=== PATIENT | male | born 1995 | race Caucasian/White ===

== ENCOUNTER 2017-02-08 06:05 | Inpatient (IN) | payer OTHER, BC ==
[2017-02-08] MEDS ORDERED: SODIUM CHLORIDE 0.9% 500 ML IV STA (06:13)
[2017-02-08] MEDS ORDERED: RX INFO: IV CONTRAST WAS GIVEN 1 EACH MISC MISCELLANE PRN ×2 (06:13→11:57)
[2017-02-08] MEDS: SODIUM CHLORIDE 0.9% 1,000 ML IV STA (06:25)
[2017-02-08 06:33] LABS: Basophils % (A) 0 %; CH 30.7; CHCM 35.3; Eosinophils # (A) 0.4 k/uL (0-0.7); Eosinophils % (A) 5 %; HCT 43.9 % (39.0-53.0); HDW 2.64; HGB 15.7 gm/dL (13.0-17.5); Luc # (Auto) 0.21; Luc % (Auto) 3; Lymphocytes # (A) 2.7 k/uL (1.0-4.8); Lymphocytes % (A) 35 %; MCH 31.3 pg (25.0-35.0); MCHC 35.8 g/dL (31.0-37.0); MCV 87.5 fL (80.0-100.0); Mean Platelet Volume 8.1; Monocytes # (A) 0.4 k/uL (0-1.0); Monocytes % (A) 6 %; Neutrophils % (A) 51 %; RBC 5.02 m/uL (4.30-5.90); RDW 12.9 % (11.5-15.5); WBC 7.7 k/uL (4.0-11.0); WBC (Perox) 7.82
[2017-02-08 06:45] LABS: ALT 31 U/L (21-72); AST 26 U/L (17-59); Alcohol <10 mg/dL; Alkaline Phosphatase 49 U/L (38-126); Anion Gap 14 mmol/L; Blood Urea Nitrogen 18 mg/dL (9-20); Calcium 9.6 mg/dL (8.4-10.2); Carbon Dioxide 23 mmol/L (22-30); Chloride 105 mmol/L (98-107); Glucose 122 mg/dL (74-99); Non-African American GFR(MDRD) >60 (>60 ml/min/1.73 sqM); Potassium 3.5 mmol/L (3.5-5.1); Sodium 142 mmol/L (137-145); Total Bilirubin 1.1 mg/dL (0.2-1.3)
[2017-02-08 06:57] LABS: INR 1.1 (<1.1); Partial Thromboplastin Time 24.7 sec (22.0-30.0); Prothrombin Time 10.8 sec (9.0-12.0)
[2017-02-08 07:00] LABS: Creatine Kinase 129 U/L (55-170)
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
[2017-02-08 07:13] LABS: Creatine Kinase MB 1.2 ng/mL (0.0-2.4); Troponin I <0.012 ng/mL (0.000-0.034)
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
[2017-02-08] MEDS ORDERED: MORPHINE SULFATE 4 MG/ML SYRINGE IVP PRN (08:35)
[2017-02-08] MEDS ORDERED: ONDANSETRON 4 MG/2 ML VIAL IVP PRN (08:35)
[2017-02-08] MEDS ORDERED: PANTOPRAZOLE 40 MG/10 ML VIAL IVP STA (08:35)
[2017-02-08] MEDS: SODIUM CHLORIDE 0.9% 1,000 ML IV ONE (09:29)
[2017-02-08 10:08] LABS: Appearance,Urine Clear (Clear); Bilirubin,Urine Negative (Negative); Glucose,Urine (UA) Negative (Negative); Ketones,Urine Negative (Negative); Leukocyte Esterase,Urine Negative (Negative); Nitrite,Urine Negative (Negative); PH, Urine 6.5 (5.0-8.0); Protein,Urine Negative (Negative); Specific Gravity,Urine 1.012 (1.001-1.035); UA Billing (MACRO vs. MICRO) CHEM; Urobilinogen,Urine <2.0 mg/dL (<2.0)
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
[2017-02-08] MEDS ORDERED: IOHEXOL 350 MG/ML 25 ML BOTTLE (ORAL USE) PO PRN (12:17)
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
[2017-02-09] MEDS: SODIUM CHLORIDE 0.9% 1,000 ML IV ONE (02:08)
[2017-02-09 07:14] LABS: Blood Urea Nitrogen 12 mg/dL (9-20); Non-African American GFR(MDRD) >60 (>60 ml/min/1.73 sqM)
[2017-02-09] MEDS: IOHEXOL 350 MG/ML 25 ML BOTTLE (ORAL USE) PO PRN ×2 (07:40→08:33)
[2017-02-09] MEDS: PANTOPRAZOLE 40 MG/10 ML VIAL IVP SCH (08:32)
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
[2017-02-09] MEDS: SODIUM CHLORIDE 0.9% 1,000 ML IV STA (20:35)
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
[2017-02-10] MEDS: SODIUM CHLORIDE 0.9% 1,000 ML IV STA (05:50)
[2017-02-10 06:49] LABS: Basophils % (A) 0 %; CH 30.8; CHCM 35.7; Eosinophils # (A) 0.1 k/uL (0-0.7); Eosinophils % (A) 2 %; HCT 36.1 % (39.0-53.0); HDW 2.61; HGB 13.3 gm/dL (13.0-17.5); Luc # (Auto) 0.13; Luc % (Auto) 2; Lymphocytes # (A) 1.5 k/uL (1.0-4.8); Lymphocytes % (A) 24 %; MCH 31.9 pg (25.0-35.0); MCHC 36.8 g/dL (31.0-37.0); MCV 86.8 fL (80.0-100.0); Mean Platelet Volume 8.2; Monocytes # (A) 0.6 k/uL (0-1.0); Monocytes % (A) 10 %; Neutrophils # (A) 3.9 k/uL (1.3-7.7); Neutrophils % (A) 62 %; RBC 4.16 m/uL (4.30-5.90); RDW 12.9 % (11.5-15.5); WBC 6.3 k/uL (4.0-11.0); WBC (Perox) 6.59
[2017-02-10 07:00] LABS: ALT 26 U/L (21-72); AST 31 U/L (17-59); Alkaline Phosphatase 38 U/L (38-126); Anion Gap 12 mmol/L; Blood Urea Nitrogen 7 mg/dL (9-20); Calcium 9.5 mg/dL (8.4-10.2); Carbon Dioxide 22 mmol/L (22-30); Chloride 110 mmol/L (98-107); Glucose 98 mg/dL (74-99); Non-African American GFR(MDRD) >60 (>60 ml/min/1.73 sqM); Potassium 4.1 mmol/L (3.5-5.1); Sodium 144 mmol/L (137-145); Total Bilirubin 2.2 mg/dL (0.2-1.3); Total Protein 6.6 g/dL (6.3-8.2)
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
[2017-02-10 16:47] VITALS: BP 140/73; PULSE 63; RESP 20; TEMP 97.8
[2017-02-10] MEDS: PANTOPRAZOLE 40 MG/10 ML VIAL IVP SCH (19:07)
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
== END 2017-02-10 19:39 | disposition home or self-care (01) | DRG 84 ==
LOC: EC 06:05 → 6PED 08:36
PROVIDERS: ADMIT Surgery; ATTEND Surgery
DX: S06.2X9A Diffuse traumatic brain injury with loss of consciousness of unspecified duration, initial encounter (principal); R00.1 Bradycardia, unspecified; S30.1XXA Contusion of abdominal wall, initial encounter; S20.311A Abrasion of right front wall of thorax, initial encounter; S70.311A Abrasion, right thigh, initial encounter; S80.211A Abrasion, right knee, initial encounter; S01.111A Laceration without foreign body of right eyelid and periocular area, initial encounter; S80.212A Abrasion, left knee, initial encounter; M25.551 Pain in right hip; R10.9 Unspecified abdominal pain; R40.2410 Glasgow coma scale score 13-15, unspecified time; Z87.828 Personal history of other (healed) physical injury and trauma; Z83.3 Family history of diabetes mellitus; V43.53XA Car driver injured in collision with pick-up truck in traffic accident, initial encounter; Y92.410 Unspecified street and highway as the place of occurrence of the external cause
CPT/HCPCS: 36415; 70450; 70553; 71010; 71260; 72125; 72170; 74177; 80053; 80306; 80320; 81003; 82550; 82553; 82565; 84484; 84520; 85025; 85610; 85730; 86850; 86900; 86901; 93005; 95819; 99285

== ENCOUNTER → 2017-06-29 | Outpatient (CLI) | payer BC ==
--- NOTE | 2017-06-29 19:42 | MR ---
PRE AND POSTCONTRAST ENHANCED MRI OF THE BRAIN: CLINICAL HISTORY: February 08, 2017 CONTRAST: 15 ML Multihance Multiplanar and multispin-echo imaging of the brain was performed both before and after the administr ation of contrast. T2 star data set again demonstrates numerous small foci of decreased signal within the right frontal greater than left frontal lobes. The findings likely reflect sequela of a previous diffuse axonal inj ury with hemosiderin deposition. No acute hemorrhage is seen at this time. The ventricles, basal cisterns and sulci overlying the cerebral convexities are within normal limits. There is no evidence for midline shift or mass effect. Acute intracranial hemorrhage is not evident. Stable 1 cm arachnoid cyst posterior superior temporal region. Following contrast administration, there is no evidence for pathologic enhancement or enhancing mass. The mastoid air cells are well-aerated. Chronic paranasal sinus disease. IMPRESSION: 1.T2 star data set again demonstrates numerous small foci of decreased signal within the right fronta l greater than left frontal lobes. The findings likely reflect sequela of a previous diffuse axonal i njury with hemosiderin deposition. No acute hemorrhage is seen at this time. 2. Stable arachnoid cyst as noted.
== END | disposition home or self-care (01) ==
LOC: RADMRIMAIN 17:51
PROVIDERS: ATTEND Psychiatry & Neurology Neurology
DX: G93.0 Cerebral cysts (principal); R90.89 Other abnormal findings on diagnostic imaging of central nervous system
CPT/HCPCS: 70553; A9581

== ENCOUNTER → 2020-05-22 | Outpatient (CLI) | payer BC | END | disposition home or self-care (01) | LOC: LABWHC1 13:51 | PROVIDERS: ATTEND Family Medicine | DX: R05 Cough (principal) | CPT/HCPCS: U0003; C9803 ==

== ENCOUNTER 2021-09-29 19:29 | Emergency (ER) | payer BC ==
[2021-09-29 20:03] VITALS: TEMP 98.4
[2021-09-29] MEDS ORDERED: DIPH,PERTUS(ACELL)TETVAC-LF 0.5 ML VIAL IM ONE (21:59)
[2021-09-29] MEDS ORDERED: LIDOCAINE 1% INJ 10MG/ML (20 ML MDV) SQ ONE (21:59)
[2021-09-29] MEDS ORDERED: BACITRACIN OINT 1 EACH PACKET TOPICAL ONE (21:59)
[2021-09-29 22:14] VITALS: BP 168/96; PULSE 92; RESP 20
--- NOTE | 2021-09-29 22:20 | XR ---
EXAMINATION TYPE: XR finger LT DATE OF EXAM: 09/29/2021 COMPARISON: NONE HISTORY: Pain TECHNIQUE: 3 views FINDINGS: There is no sign of fracture nor dislocation. Index finger appears intact. There is no evid ence of a foreign body. IMPRESSION: Negative left index finger exam.
[2021-09-29] MEDS ORDERED: ACETAMINOPHEN TAB 325 MG TAB PO STA (23:09)
[2021-09-29] MEDS ORDERED: CEPHALEXIN 500 MG CAP PO STA (23:11)
--- NOTE | 2021-09-29 23:18 | ED ---
General Adult HPI - General Chief complaint: Wound/Laceration Stated complaint: Lt Finger Laceration Time Seen by Provider: 09/29/21 21:22 Source: patient Mode of arrival: ambulatory - History of Present Illness Initial comments: This 25-year-old male presents emergency Department with left hand pointer finger laceration that happened today at 1:00 when he was working on his car. Patient states he was working in his car when his left hand slipped and hit a metal bracket, causing laceration. Patient states he is not sure when his last tetanus shot was but states he will get it today. Patient admits to spraying antiseptic and alcohol spray onto the finger along with adding liquid skin glue around 2 PM. Patient denies any pain to his left hand. Patient denies any loss of sensation or loss of movement to his finger or hand. Patient denies any chest pain, or shortness of breath, vomiting, nausea, vomiting, headache, change in vision, change in bowel or bladder. - Related Data Previous Rx's Medication Instructions Recorded Cephalexin [Keflex] 500 mg PO Q6HR #12 cap 09/29/21 Allergies Allergy/AdvReac Type Severity Reaction Status Date / Time No Known Allergies Allergy Verified 09/29/21 20:03 Review of Systems ROS Statement: Those systems with pertinent positive or pertinent negative responses have been documented in the HPI. ROS Other: All systems not noted in ROS Statement are negative. Past Medical History Past Medical History: No Reported History History of Any Multi-Drug Resistant Organisms: None Reported Past Surgical History: No Surgical Hx Reported Additional Past Surgical History / Comment(s): R evangelical surgery d/t dog bite Past Anesthesia/Blood Transfusion Reactions: No Reported Reaction Past Psychological History: No Psychological Hx Reported Smoking Status: Never smoker Past Alcohol Use History: None Reported Past Drug Use History: Marijuana - Past Family History Father Family Medical History: Diabetes Mellitus Mother Family Medical History: No Reported History General Exam General appearance: alert, in no apparent distress Head exam: Present: normocephalic Eye exam: Present: normal appearance, PERRL, EOMI. Absent: scleral icterus, conjunctival injection, periorbital swelling ENT exam: Present: mucous membranes moist Neck exam: Present: full ROM Respiratory exam: Present: normal lung sounds bilaterally. Absent: respiratory distress, wheezes, rales, rhonchi, stridor Cardiovascular Exam: Present: regular rate, normal rhythm, normal heart sounds. Absent: systolic murmur, diastolic murmur, rubs, gallop, clicks GI/Abdominal exam: Present: soft, normal bowel sounds. Absent: distended, tenderness, guarding, rebound, rigid Extremities exam: Present: normal inspection (1-1.5cm lac over left hand pointer finger. I was able to extensively irrigate the wound and to provide all of the dried glue that patient had put onto his laceration. Patient was able to flex and extend his finger), full ROM, normal capillary refill (Ulnar and radial pulses palpable of left hand), other (Patient with 1 cm laceration over her left hand pointer finger knuckle between the proximal and middle phalanx. Patient's finger in extension. Patient is able to flex his finger 90, however he is not able to fully flex his finger due to pain. Sensation intact in all digits. No pain to palpation) Back exam: Present: full ROM Neurological exam: Present: alert, oriented X3, CN II-XII intact Psychiatric exam: Present: normal affect, normal mood Skin exam: Present: warm, dry, normal color. Absent: rash Course Vital Signs 09/29/21 09/29/21 20:00 22:13 Temperature 98.4 F Pulse Rate 100 92 Respiratory 18 20 Rate Blood Pressure 178/98 168/96 O2 Sat by Pulse 98 100 Oximetry Procedures - Laceration Laceration #1 Consent Obtained: verbal consent Indication: laceration Site: hand Description: linear Depth: simple, single layer Anesthetic Used: lidocaine 1% Anesthesia Technique: nerve block Pre-repair: wound explored, irrigated extensively, deep structures intact Type of Sutures: nylon Size of Sutures: 5-0 Number of Sutures: 1 Technique: simple, interrupted Patient Tolerated Procedure: well, no complications - Orthopedic Splinting/Casting Injury #1 Side: left Upper Extremity Injury Location: finger Upper Extremity Immobilizer: finger (other) Medical Decision Making - Medical Decision Making This 25-year-old male presents emergency Department with left hand pointer finger laceration back in today at 1 PM. X-ray without any dislocation or fracture noted. I did extensively irrigate laceration. I did put one 5-0 suture into center of laceration along with adding a froggy splint to keep finger straight, bacitracin ointment was applied. I instructed patient to follow up with his primary care provider next 1-2 days. Was able to patient Tylenol and 1 dose of Keflex here. Keflex prescription given to patient for infection prevention. I did discuss infection signs and symptoms and instructed patient to return to the emergency department if he experiences any of the symptoms. Instructed patient to return if any new, worsening or concerning symptoms. Instructed patient to have suture removed in 7-10 days. Patient verbally agreed to plan. Patient sent in stable condition. Case discussed with my attending, who was able to assess laceration before irrigation and suturing. Disposition Clinical Impression: Laceration of finger of left hand with tendon involvement Disposition: HOME SELF-CARE Condition: Stable Instructions (If sedation given, give patient instructions): Care For Your Stitches (ED), Finger Laceration (ED) Additional Instructions: Follow-up with her primary care provider in next 1-2 days. Return to the emergency department with any new, worsening, or concerning symptoms. Please take antibiotic as directed. Can take Tylenol or Motrin for pain. Return to the emergency department or urgent care for suture removal on 10/07/2021. Prescriptions: Cephalexin [Keflex] 500 mg PO Q6HR #12 cap Is patient prescribed a controlled substance at d/c from ED?: No Referrals: Anderson Whitney DO [Primary Care Provider] - 1-2 days Time of Disposition: 23:12
== END 2021-09-29 23:41 | disposition home or self-care (01) ==
LOC: EC 19:29
DX: S61.211A Laceration without foreign body of left index finger without damage to nail, initial encounter (principal); F12.90 Cannabis use, unspecified, uncomplicated; Z23 Encounter for immunization; W26.8XXA Contact with other sharp object(s), not elsewhere classified, initial encounter
CPT/HCPCS: 99283; 90471; 12001; 73140; 90715; J2001

== ENCOUNTER 2023-02-27 21:07 | Emergency (ER) | payer BC ==
[2023-02-27 21:13] VITALS: TEMP 99
--- NOTE | 2023-02-27 23:23 | ED ---
Skin/Abscess/FB HPI - General Chief complaint: Skin/Abscess/Foreign Body Stated complaint: abcess pelvic region Time Seen by Provider: 02/27/23 23:04 Source: patient, RN notes reviewed Mode of arrival: ambulatory Limitations: no limitations - History of Present Illness Initial comments: This is a 27-year-old male who presents to the emergency department for a lump in the left groin. States that he first noticed this a couple of months ago. This becomes more prominent when he coughs or bears down. Does not believe that this is getting bigger and he is not experiencing any pain with this. States that he is becoming scared and wants to know what this is. Denies any history of similar symptoms in the past. Denies any fevers, chills, sore throat, cough, dyspnea, chest pain, palpitations, abdominal pain, nausea, vomiting, diarrhea, back pain, or headaches. - Related Data Previous Rx's Medication Instructions Recorded Cephalexin [Keflex] 500 mg PO Q6HR #12 cap 09/29/21 Allergies Allergy/AdvReac Type Severity Reaction Status Date / Time No Known Allergies Allergy Verified 02/27/23 21:13 Review of Systems ROS Statement: Those systems with pertinent positive or pertinent negative responses have been documented in the HPI. ROS Other: All systems not noted in ROS Statement are negative. Past Medical History Past Medical History: No Reported History History of Any Multi-Drug Resistant Organisms: None Reported Past Surgical History: No Surgical Hx Reported Additional Past Surgical History / Comment(s): R jehovah's witness surgery d/t dog bite Past Anesthesia/Blood Transfusion Reactions: No Reported Reaction Past Psychological History: No Psychological Hx Reported Smoking Status: Never smoker Past Alcohol Use History: None Reported Past Drug Use History: Marijuana - Past Family History Father Family Medical History: Diabetes Mellitus Mother Family Medical History: No Reported History General Exam Limitations: no limitations General appearance: alert, in no apparent distress Head exam: Present: atraumatic, normocephalic, normal inspection Respiratory exam: Present: normal lung sounds bilaterally. Absent: respiratory distress, wheezes, rales, rhonchi, stridor Cardiovascular Exam: Present: regular rate, normal rhythm, normal heart sounds. Absent: systolic murmur, diastolic murmur, rubs, gallop, clicks exam: Present: other (I was unable to palpate any lumps in the left groin region, however there was a questionable left inguinal hernia.) Neurological exam: Present: alert, oriented X3, CN II-XII intact Psychiatric exam: Present: normal affect, normal mood Skin exam: Present: warm, dry, intact, normal color. Absent: rash Course Vital Signs 02/27/23 02/28/23 21:10 02:50 Temperature 99.0 F Pulse Rate 120 H 95 Respiratory 18 16 Rate Blood Pressure 157/104 167/102 O2 Sat by Pulse 99 98 Oximetry Medical Decision Making - Medical Decision Making This is a 27-year-old male who presents to the emergency department for a lump in the left groin. Was pt. sent in by a medical professional or institution? @ -No Did you speak to anyone other than the patient for history? @ -No Did you review nursing and triage notes? @ -Yes, and I agree, it is accurate with regards to the patient's symptoms. Were old charts reviewed? @ -No Differential Diagnosis? @ -Differential Groin Mass: Lymphadenopathy, tumor, strain, hernia, this is not meant to be an all-inclusive list. EKG interpreted by me (3pts min.)? @ -Not obtained X-rays interpreted by me (1pt min.)? @ -Not obtained CT interpreted by me (1pt min.)? @ -Computed tomography scan of the abdomen and pelvis obtained. My interpretation identifies no evidence of bowel wall thickening or free air. U/S interpreted by me (1pt. min.)? @ -Not interpreted by me What testing was considered but not performed? (CT, X-rays, U/S, labs)? Why? @ -None What meds were considered but not given? Why? @ -None Did you discuss the management of the patient with other professionals? @ -No Did you reconcile home meds? @ -No Was smoking cessation discussed for >3mins.? @ -No Was critical care preformed (if so, how long)? @ -No Were there social determinants of health that impacted care today? How? (Homelessness, low income, unemployed, alcoholism, drug addiction, transportation, low edu. Level, literacy, decrease access to med. care, fdc, rehab)? @ -No Was there de-escalation of care discussed even if they declined? (Discuss DNR or withdrawal of care, Hospice)? @ -No What co-morbidities impacted this encounter? (DM, HTN, Smoking, COPD, CAD, Cancer, CVA, Hep., AIDS, mental health diagnosis, sleep apnea, morbid obesity)? @ -None Was patient admitted / discharged? @ -Discharged. On physical examination there is a questionable left inguinal hernia, however nothing specific was palpated. We initially obtained an ultrasound of the left groin. There were no irregularities identified in the left groin on the ultrasound. There was a right inguinal hernia identified however. Discussed with the patient that we can proceed with a computed tomography scan of the abdomen and pelvis for further evaluation. However, as the patient's emergency department visit was overnight, radiology readings were very delayed. Advised that we can obtain a computed tomography scan and have him follow up on the results with his primary care provider. Patient was in agreement with this. Computed tomography scan of the abdomen and pelvis was obtained and the patient was discharged home in stable condition with the plan to have close follow-up with his PCP. I did review the results of the computed tomography scan after they returned, and no irregularities were identified. Of note, patient did have elevated blood pressure while in the emergency department. This was communicated with him, in that he will need to follow-up on this as well with his primary care provider. Undiagnosed new problem with uncertain prognosis? @ -None Drug Therapy requiring intensive monitoring for toxicity (Heparin, Nitro, Insulin, Cardizem)? @ -None Were any procedures done? @ -None Diagnosis/symptom? @ -Left groin mass Acute, or Chronic, or Acute on Chronic? @ -Chronic Uncomplicated (without systemic symptoms) or Complicated (systemic symptoms)? @ -Uncomplicated Side effects of treatment? @ -None Exacerbation, Progression, or Severe Exacerbation] @ -Stable Poses a threat to life or bodily function? @ -No Return precautions reviewed in depth, the patient is instructed to return to the emergency department with any new, worsening, or concerning symptoms. Patient verbalized understanding. This case was discussed in detail with the attending ED physician, Dr. Amezquita. Presentation, findings, and treatment plan discussed in detail as well. - Radiology Data Radiology results: report reviewed, image reviewed Disposition Clinical Impression: Lump in the groin, Elevated blood pressure reading Disposition: HOME SELF-CARE Additional Instructions: Return to the emergency department with any new, worsening, or concerning symptoms. The results of the CT scan will be sent to your primary care provider for review. You should also have your blood pressure rechecked with your primary care provider, as it was elevated in the emergency department. Follow up with your primary care provider in 1-2 days. Is patient prescribed a controlled substance at d/c from ED?: No Referrals: Anderson Whitney DO [Primary Care Provider] - 1-2 days
--- NOTE | 2023-02-28 02:50 | US ---
EXAM: US Abdomen Limited CLINICAL HISTORY: ITS.REASON US Reason: Lump in left groin TECHNIQUE: Real-time ultrasound of the soft tissues of the abdomen with image documentation. COMPARISON: No relevant prior studies available. FINDINGS: Soft tissues: Unremarkable. Other findings: Fat-containing right inguinal canal hernia. IMPRESSION: No acute findings in the visualized soft tissues of the abdomen.
[2023-02-28 02:56] VITALS: BP 167/102; PULSE 95; RESP 16
--- NOTE | 2023-02-28 03:46 | CT ---
EXAM: CT Abdomen and Pelvis With Intravenous Contrast CLINICAL HISTORY: ITS.REASON CT Reason: RLQ and right groin pain TECHNIQUE: Axial computed tomography images of the abdomen and pelvis with intravenous contrast. CTDI is 13.1 mGy and DLP is 658.3 mGy-cm. This CT exam was performed using one or more of the following dose reduction techniques: automated exposure control, adjustment of the mA and/or kV according to patient size, and/or use of iterative reconstruction technique. COMPARISON: 02/09/2017 FINDINGS: Lung bases: Unremarkable. No mass. No consolidation. ABDOMEN: Liver: Unremarkable. No mass. Gallbladder and bile ducts: Unremarkable. No calcified stones. No ductal dilation. Pancreas: Unremarkable. No mass. No ductal dilation. Spleen: Unremarkable. No splenomegaly. Adrenals: Unremarkable. No mass. Kidneys and ureters: Unremarkable. No solid mass. No hydronephrosis. Stomach and bowel: Unremarkable. No obstruction. No mucosal thickening. PELVIS: Appendix: Normal-appearing appendix. Bladder: Unremarkable. No mass. Reproductive: Unremarkable as visualized. ABDOMEN and PELVIS: Intraperitoneal space: Unremarkable. No free air. No significant fluid collection. Bones/joints: No acute fracture. No dislocation. Soft tissues: Fat-containing left inguinal hernia containing fat. Vasculature: Unremarkable. No abdominal aortic aneurysm. Lymph nodes: Unremarkable. No enlarged lymph nodes. IMPRESSION: No acute findings in the abdomen or pelvis.
== END 2023-02-28 03:29 | disposition home or self-care (01) ==
LOC: EC 21:07
DX: R10.32 Left lower quadrant pain (principal); I10 Essential (primary) hypertension; F12.90 Cannabis use, unspecified, uncomplicated
CPT/HCPCS: 76882; 74177; 99283; Q9967

== ENCOUNTER → 2024-05-18 | Outpatient (CLI) | payer OTHER ==
--- NOTE | 2024-05-18 09:34 | US ---
EXAMINATION TYPE: US renal artery duplex complet DATE OF EXAM: 05/18/2024 COMPARISON: NONE CLINICAL INDICATION: Male, 28 years old with history of I70.1 ATHEROSCLEROSIS OF RENAL ARTERY; HTN fo r a few months, medication is working TECHNIQUE: Grayscale, color Doppler and spectral Doppler imaging of the bilateral renal arteries and kidneys. FINDINGS: MEASUREMENTS: RENAL SIZE: Right Kidney: 9.6 x 5.0 x 5.4cm Left Kidney: 10.2 x 5.3 x 6.6cm Right Kidney: No hydronephrosis or lesions seen Left Kidney: No hydronephrosis or lesions seen Abd Aorta: No AAA visualized RESISTANCE INDEX Right: 1.2 Left: 0.8 RA/AO RATIO (< 3.5 ) Right: 1.2 Left: 0.8 RENAL ARTERY VELOCITY ( < 180 cm/s) Right: 185.0 Left: 124.2 Facility Administrator Notes: No significant stenosis seen IMPRESSION: Mild renal artery stenosis right kidney. [facility], , 05/18/2024 9:32 AM
== END | disposition home or self-care (01) ==
LOC: RADUSWWP 07:57
PROVIDERS: ATTEND Internal Medicine Cardiovascular Disease
CPT/HCPCS: 93975